=== PATIENT | male | born 1965 | race Caucasian/White ===

== ENCOUNTER → 2017-08-01 | Outpatient (CLI) | payer BC ==
[~2017-08-01] MED LIST: ASPI-496 PO; CEPH-368 PO; DIAZ5TAB4 PO; GADOBUTROL 10 MMOL/10 ML PFS ONE; HYDR-3237 PO; IBUP-1223 PO; MULTIVITAMIN PO; ONDA4TAB10 PO; OXYC1TAB7 PO; TELM40TA PO
== END | disposition home or self-care (01) ==
LOC: CFH 07:55
PROVIDERS: ATTEND Registered Nurse
DX: R42 Dizziness and giddiness (principal); H91.90 Unspecified hearing loss, unspecified ear
CPT/HCPCS: 70553; 82565; A9585